=== PATIENT | female | born 1990 | race Caucasian/White ===

== ENCOUNTER 2016-08-22 00:54 | Emergency (ER) | payer OTHER ==
[~2016-08-22 00:54] MED LIST: COLACE 100MG C100 MG PO
== END 2016-08-22 03:07 | disposition home or self-care (01) ==
LOC: ER1 00:54
DX: S13.4XXA Sprain of ligaments of cervical spine, initial encounter (principal); S33.5XXA Sprain of ligaments of lumbar spine, initial encounter; V49.50XA Passenger injured in collision with unspecified motor vehicles in traffic accident, initial encounter; Y92.410 Unspecified street and highway as the place of occurrence of the external cause
CPT/HCPCS: 99283

== ENCOUNTER 2021-11-05 07:52 | Emergency (ER) | payer OTHER ==
[~2021-11-05 07:52] MED LIST changes: +BACTROBAN OINT22 GM EXT; +IBUPROFEN600 MG PO; +KEFLEX CAP 500500 MG PO
[2021-11-05] MEDS ORDERED: ZITHROMAX250 MG PO (09:59)
== END 2021-11-05 10:46 | disposition home or self-care (01) ==
LOC: ER1 07:52
DX: U07.1 COVID-19 (principal); J12.82 Pneumonia due to coronavirus disease 2019
CPT/HCPCS: 71045; 87081; 87880; 96372; 99283; J1100